=== PATIENT | female | born 1945 ===

== ENCOUNTER 2019-03-15 11:58 | Outpatient (CLI) | payer OTHER ==
[~2019-03-15 11:58] MED LIST: ALENDRONATE SOD70 MG PO; HYDROCHLOROTHIA25 MG PO; LEVO-T50 MCG PO; LIPITOR40 MG PO; MONTELUKAST SOD10 MG PO; OMEGA-31000 MG PO; PROPRANOLOL HCL60 M1 PO; VITAMIN D32000 UNI1 PO
== END 2019-03-15 12:29 | disposition home or self-care (01) ==
LOC: LAB 11:58
DX: K80.10 Calculus of gallbladder with chronic cholecystitis without obstruction (principal)

== ENCOUNTER 2019-03-19 05:55 | Day surgery (SDC) | payer OTHER ==
[2019-03-19] MEDS ORDERED: ULTRACET PO (09:22)
[2019-03-19] MEDS ORDERED: ZANTAC300 MG PO (09:23)
[2019-03-19] MEDS ORDERED: KEFLEX500 MG PO (09:25)
== END 2019-03-19 11:05 | disposition home or self-care (01) ==
LOC: CIR.AMB 05:55
DX: K80.10 Calculus of gallbladder with chronic cholecystitis without obstruction (principal); K42.9 Umbilical hernia without obstruction or gangrene